=== PATIENT | male | born 1945 | race Caucasian/White ===

== ENCOUNTER → 2019-10-24 | Outpatient (CLI) | payer OTHER ==
[~2019-10-24] MED LIST: CELEBREX 200 M200 MG PO; LISINOPRIL-HCT1 EAC1 PO; MULTIPLE VITAM1 EAC3 PO; SIMVASTATIN20 MG PO
== END ==
LOC: M.MRI 10-15 08:45
DX: I62.9 Nontraumatic intracranial hemorrhage, unspecified (principal); R41.3 Other amnesia; R90.82 White matter disease, unspecified; G93.89 Other specified disorders of brain; G89.29 Other chronic pain

== ENCOUNTER → 2020-05-27 | Outpatient (CLI) | payer OTHER ==
--- NOTE | 2020-06-02 12:10 | SLEEP ---
[address] [address] SLEEP STUDY REPORT Name: SHAYNE GLOVER Room: [facility]#: [id number] Admission: 05/27/20 Attend Phys: Mark Henry MD Discharge: Date of : 43 Report #: [id number] THIS REPORT FOR: cc: Manan Velarde MD, Dean L. MD ~ Mark Henry MD This study has been reviewed in its entirety by a board certified sleep specialist DATE OF SERVICE: 05/27/2020 SLEEP STUDY INDICATION FOR SLEEP STUDY: Obstructive sleep apnea. The patient is currently using an old CPA,P still has excessive daytime sleepiness, despite compliance. Date of sleep study is 05/27/2020. INTERPRETATION: Total duration of the study is 438 minutes out of which he was asleep for 173 minutes with a marked reduction in sleep efficiency at 39.4%. Sleep onset initially occurred around 1-1/2 hours after lying down in bed. REM onset was 242 minutes after sleep onset. N1 sleep duration was 17%, N2 duration 65%, N3 duration was 0% and REM duration was 18%. We did record multiple sleep related respiratory events. These included 18 obstructive apneas in addition to 45 hypopneas and 15 respiratory effort related arousals with an overall apnea-hypopnea index of 21.9. Body position data indicates the patient was observed asleep for 141 minutes in the supine position. The rest of the time he was in other positions. The supine apnea/hypopnea index is higher at 24.7. Mean heart rate was 58. Periodic limb movement index is markedly elevated at 138 with a periodic limb movement index with arousals being 30. There is marked elevation in arousal index at 60. There are multiple desaturations recorded. Overall, the patient spent 15.4 minutes. Overall, the patient spent 17.1 minutes below an O2 saturation of 90%, out of which 8.6 minutes were spent below an O2 saturation of 88%. IMPRESSION: 1. Obstructive sleep apnea with an apnea-hypopnea index of 21.9 with mild nocturnal hypoxemia as described above. 2. The patient is accustomed to sleeping with a CPAP. He struggled sleeping without the CPAP and had a reduction in sleep efficiency and total sleep time as above. RECOMMENDATIONS: Since the patient is still [place] [address] SLEEP STUDY REPORT Name: SHAYNE GLOVER Room: [facility]#: [id number] Admission: 05/27/20 Attend Phys: Mark Henry MD Discharge: Date of : 43 Report #: [id number] CPAP therapy, I recommend that we proceed with a repeat sleep study for positive airway pressure titration. We would continue with CPAP as currently prescribed and a repeat sleep study is reviewed. Recommend avoiding driving or other activities requiring vigilance if drowsy. This entire sleep study was reviewed by board certified sleep physician. <ELECTRONICALLY SIGNED> By: Mark Henry MD 06/02/20 1210 1150 [id number] Henry MD /nt
== END ==
LOC: M.SLEEPLAB 19:46
PROVIDERS: ATTEND Internal Medicine Critical Care Medicine
DX: G47.33 Obstructive sleep apnea (adult) (pediatric) (principal); G47.34 Idiopathic sleep related nonobstructive alveolar hypoventilation

== ENCOUNTER → 2020-08-19 | Outpatient (CLI) | payer OTHER ==
--- NOTE | 2020-09-11 23:20 | SLEEP ---
[address] [address] SLEEP STUDY REPORT Name: ADALBERTOSHAYNE Lynnette Room: [facility]#: [id number] Admission: 08/19/20 Attend Phys: Mark Henry MD Discharge: Date of : 43 Report #: [id number] THIS REPORT FOR: cc: Manan Velarde MD, Dean L. MD Pervez, Adeel MD ~ This study has been reviewed in its entirety by a board certified sleep specialist DATE OF SERVICE: 08/19/2020 INDICATION FOR SLEEP STUDY: Severe obstructive sleep apnea. Sleep study is being performed for positive airway pressure retitration. INTERPRETATION: Total duration of the study is 492 minutes. During this time duration, he was asleep for 236 minutes with an overall sleep efficiency decreased to 48%. Sleep onset was delayed occurring around 50 minutes after lying down in bed. REM onset was 150 minutes after sleep onset. N1 sleep duration is 12%, N2 duration is 57%, N3 duration is 17%, and REM duration is 15%. Body position data indicates the patient was lying in the supine position, asleep for 181 minutes. The rest of the time was on the left side. Mean heart rate was 61. Periodic limb movement index is elevated to 136. Most limb movements, however, are not associated with arousals. Periodic limb movement index with arousals is 27. Arousal index is 57 and there is significant sleep fragmentation observed. Mean heart rate during the sleep study is 61. This is a positive airway pressure titration. Review of the positive airway pressure titration indicates that the patient was titrated beginning with a CPAP pressure of 5 cm of water, gradually increasing it to 8 cm of water. The patient subsequently was also on a BiPAP, ranged from 05/20-24/02. There were occasional central events noted on lower CPAP pressures. It is noted that the patient also has episodes of stage wake at this time. On a CPAP pressure of 8 cm of water, there is overall adequate control of the patient's sleep disordered respirations and O2 saturations are also adequately maintained. The patient subsequently was also noted to have adequate control of his sleep disordered respirations on a BiPAP of 24/02. O2 saturation is also adequately maintained in both these settings. REM sleep was only documented on a BiPAP of 24/02. IMPRESSION: Obstructive sleep apnea, previously documented, adequately controlled with CPAP as well [place] [address] SLEEP STUDY REPORT Name: SHAYNE GLOVER Lynnette Room: [facility]#: [id number] Admission: 08/19/20 Attend Phys: Mark Henry MD Discharge: Date of : 43 Report #: [id number] There is periodic limb movement disorder noted. RECOMMENDATIONS: The patient reports that he is currently on a CPAP pressure of 7 cm of water and doing very well. Therefore, I do not feel strongly about switching him over to BiPAP at this time. We titrated him to a CPAP of 8 cm of water. We will go ahead and set him up with a CPAP of 8 cm of water with heated humidity and mask per patient's preference while sleep with a [employer] small size full face mask. In case, the patient was to become more symptomatic later, we certainly will consider switching him to BiPAP at that stage. We will assess further regarding his periodic limb movement disorder on his next office visit. At this time, I am inclined to hold off on therapy for periodic limb movement disorder. I recommend avoiding driving or other activities requiring vigilance if drowsy. This entire sleep study was reviewed by board certified sleep physician. <ELECTRONICALLY SIGNED> By: Mark Henry MD 09/11/20 2320 [id number] [id number] Henry MD /nt
== END ==
LOC: M.SLEEPLAB 19:19
PROVIDERS: ATTEND Internal Medicine Critical Care Medicine
DX: G47.33 Obstructive sleep apnea (adult) (pediatric) (principal)

== ENCOUNTER → 2021-05-29 | Outpatient (CLI) | payer OTHER | LOC: M.RAD 15:05 | PROVIDERS: ATTEND Internal Medicine | DX: M51.26 Other intervertebral disc displacement, lumbar region (principal); M25.78 Osteophyte, vertebrae ==